=== PATIENT | male | born 1960 | race Caucasian/White ===

== ENCOUNTER → 2018-10-02 | Outpatient (CLI) | payer SELFPAY | END | disposition home or self-care (01) | LOC: RAH 06:52 | PROVIDERS: ATTEND Physical Medicine & Rehabilitation | DX: M48.061 Spinal stenosis, lumbar region without neurogenic claudication (principal); M47.26 Other spondylosis with radiculopathy, lumbar region; M25.78 Osteophyte, vertebrae | CPT/HCPCS: 72148 ==

== ENCOUNTER → 2019-10-08 | Outpatient (CLI) | payer OTHER | END | disposition home or self-care (01) | LOC: RAH 07:36 | PROVIDERS: ATTEND Internal Medicine Cardiovascular Disease | DX: I34.0 Nonrheumatic mitral (valve) insufficiency (principal) | CPT/HCPCS: 93306 ==

== ENCOUNTER → 2025-06-25 | Outpatient (CLI) | payer BC ==
--- NOTE | 2025-06-26 13:38 | HMCIMG ---
EXAM: MR Lumbar Spine Without Intravenous Contrast. CLINICAL HISTORY: Right-sided sciatica. TECHNIQUE: Magnetic resonance images of the lumbar spine in multiple planes. CONTRAST: None. COMPARISON: MRI dated 10/02/2018. FINDINGS: For this examination, spinal levels were labeled assuming five non-rib bearing, lumbar-type vertebrae with the inferior labeled L5. No acute fracture. Mild levoscoliosis. Exaggerated lumbar lordosis. Mild degenerative retrolisthesis of L2 over L3 and L3 over L4. Mild degenerative anterolisthesis of L4 over L5. Multilevel spondylosis is evident by marginal osteophytes and facet joint arthropathy. Multilevel disc desiccation noted. Normal vertebral body and disc heights. Modic type I changes in the contiguous endplates at the L2-L3 level. Modic type II changes in the anterior corners of the contiguous endplates at the T12-L1 through L3-L4 levels. Small hemangiomas in the T12 and L5 vertebral bodies. Conus medullaris terminates at the T12-L1 level. No abnormal epidural masses. The surrounding soft tissues are unremarkable. Individual spinal levels are described as follows: T12-L1: 4 mm disc osteophyte complex bulge causing mild indentation on the anterior thecal sac. No neural foraminal or lateral recess stenosis. L1-L2: 3 mm disc osteophyte complex bulge causing mild indentation on the anterior thecal sac. No neural foraminal or lateral recess stenosis. L2-L3: 5 mm retrolisthesis of L2 over L3 with disc osteophyte complex bulge and facet joint arthropathy causing mild indentation on the anterior thecal sac and mild bilateral foraminal narrowing. No lateral recess stenosis. L3-L4: 5 mm retrolisthesis of L3 over L4 with disc osteophyte complex bulge and facet joint arthropathy causing mild indentation on the anterior thecal sac and mild bilateral foraminal narrowing. No lateral recess stenosis. L4-L5: 5 mm anterolisthesis of L4 over L5 with uncovering of the posterior disc, ligamentum flavum thickening, and facet joint arthropathy causing mild canal narrowing, severe bilateral lateral recess narrowing with compression of the traversing bilateral L5 nerve roots, and mild bilateral foraminal narrowing. L5-S1: 2 mm disc osteophyte complex bulge and facet joint arthropathy causing mild indentation on the anterior thecal sac and mild bilateral foraminal narrowing. No lateral recess stenosis. IMPRESSION: Mild levoscoliosis. Mild interval worsening noted. Exaggerated lumbar lordosis. Mild degenerative retrolisthesis of L2 over L3 and L3 over L4. Mild degenerative anterolisthesis of L4 over L5. Mild interval worsening noted. Moderate multilevel spondylosis. Mild interval worsening noted. Modic type I changes in the contiguous endplates at the L2-L3 level. New finding. Modic type II changes in the anterior corners of the contiguous endplates at the T12-L1 through L3-L4 levels. Mild indentation on the anterior thecal sac and mild bilateral foraminal narrowing at the L2-L3, L3-L4, and L5-S1 levels. Stable. Mild canal narrowing, severe bilateral lateral recess narrowing with compression of the traversing bilateral L5 nerve roots, and mild bilateral foraminal narrowing at the L4-L5 level. Mild interval worsening of the bilateral lateral recess narrowing. /[place]
== END | disposition home or self-care (01) ==
LOC: RAH 11:17
PROVIDERS: ATTEND Family Medicine
DX: M47.817 Spondylosis without myelopathy or radiculopathy, lumbosacral region (principal); M51.379 Other intervertebral disc degeneration, lumbosacral region without mention of lumbar back pain or lower extremity pain; M48.07 Spinal stenosis, lumbosacral region; M43.16 Spondylolisthesis, lumbar region; M41.86 Other forms of scoliosis, lumbar region; M25.78 Osteophyte, vertebrae; M54.31 Sciatica, right side; M54.32 Sciatica, left side; D18.09 Hemangioma of other sites
CPT/HCPCS: 72148